=== PATIENT | male | born 1985 | race Caucasian/White ===

== ENCOUNTER → 2017-05-02 | Outpatient (CLI) | payer BC ==
[~2017-05-02] MED LIST: FLAGYL500 MG PO; LEVAQUIN 750MG750 M1 PO; NORCO 325 MG-51 TAB PO; PROTONIX 40MG T40 MG PO; ZOFRAN ODT4 MG PO
== END ==
LOC: COL.RAD 14:57
DX: M54.5 Low back pain (principal); K63.89 Other specified diseases of intestine; R31.9 Hematuria, unspecified; N50.812 Left testicular pain; N50.811 Right testicular pain

== ENCOUNTER 2017-12-24 22:06 | Emergency (ER) | payer BC ==
[2017-12-24 22:10] VITALS: TEMP 97.9
[2017-12-24] MEDS ORDERED: ULTRAM 50MG TAB50 MG PO (22:44)
[2017-12-24] MEDS ORDERED: FLEXERIL 1010 MG/TAB PO (22:45)
[2017-12-24] MEDS ORDERED: PREDNISONE20 MG PO (22:45)
[2017-12-24 23:07] VITALS: BP 136/76; PULSE 76
== END 2017-12-24 23:08 | disposition home or self-care (01) ==
LOC: COL.ER 22:06
DX: M54.17 Radiculopathy, lumbosacral region (principal); X50.3XXA Overexertion from repetitive movements, initial encounter; Y92.69 Other specified industrial and construction area as the place of occurrence of the external cause; Y99.0 Civilian activity done for income or pay
CPT/HCPCS: J1100

== ENCOUNTER 2019-03-08 01:34 | Observation (INO) | payer OTHER ==
[~2019-03-08] VITALS: Ht 177.8 cm; Wt 111.2 kg
[~2019-03-08 01:34] MED LIST changes: +FLEXERIL 1010 MG/TAB PO; +PREDNISONE20 MG PO; +ULTRAM 50MG TAB50 MG PO
[2019-03-08 02:03] LABS: COLLECTION METHOD CLEAN CATCH
[2019-03-08 02:06] LABS: BASO % 0.2 % (0.0-2.0); EOS # 0.1 (0.0-0.7); EOS % 0.6 % (0-4.0); GRAN % 78.7 % (42.2-75.2); HEMATOCRIT 43.3 % (42.0-52.0); HEMOGLOBIN 14.6 g/dl (13.5-18.0); LYMPH # 1.5 (1.2-3.4); LYMPH % 11.9 % (20.0-51.0); MEAN CELL VOLUME 91 fl (80.0-100.0); MEAN CORPUSCULAR HEMOGLOBIN 31 pg (27.0-31.0); MEAN CORPUSCULAR HGB CONC 34 g/dl (33.0-37.0); MEAN PLATELET VOLUME 10.5 fl (7.4-10.4); MONO # 1.1 (0.1-0.6); MONO % 8.4 % (1.7-9.3); PLATELET COUNT 223 K/mm3 (130-400); RED BLOOD COUNT 4.76 M/mm3 (4.20-5.60); REDCELL DISTRIBUTION WIDTH-CV 14.3 % (11.5-14.5)
[2019-03-08 02:09] LABS: MUCOUS Present /lpf; PH 5 (5-8); SQUAMOUS EPITHELIAL 0-2 /hpf; URINE APPEARANCE Clear; URINE BACTERIA None Seen /hpf; URINE BILIRUBIN Negative (NEGATIVE); URINE BLOOD Negative (NEGATIVE); URINE COLOR Yellow; URINE GLUCOSE Negative (NEGATIVE); URINE KETONE 1+ (NEGATIVE); URINE LEUKOCYTE ESTERASE Negative (NEGATIVE); URINE NITRATE Negative (NEGATIVE); URINE PROTEIN(semi-quant) Negative (NEGATIVE); URINE RBC 0-2 /hpf; URINE UROBILINOGEN Negative (NEGATIVE)
[2019-03-08 02:19] LABS: ALBUMIN 4.4 gm/dL (3.5-5.0); BILIRUBIN,TOTAL 0.8 mg/dL (0.0-1.0); C-REACTIVE PROTEIN 0.7 mg/dL (0.0-0.9); CALCIUM 9.4 mg/dL (8.4-10.2); CREATININE, serum 0.88 (0.66-1.25); POTASSIUM 4.3 mmol/L (3.4-5.0); TOTAL PROTEIN 7.9 gm/dL (6.4-8.2)
--- NOTE | 2019-03-08 04:25 | NUR ---
Patient arrived to unit at this time. Call light within reach.
--- NOTE | 2019-03-08 04:50 | NUR ---
Patient resting in bed. Initial assessment complete. Med rec completed. Patienr has no home meds. States pain is 6/10. Requests pain medication as soon as possible. Call light within reach.
[2019-03-08 04:51] VITALS: BP 137/78; PULSE 70; TEMP 98.5
--- NOTE | 2019-03-08 05:53 | NUR ---
Patient resting in bed. Requests to receive pain medication as soon as available. Call light within reach.
[2019-03-08 06:59] VITALS: BP 134/73; PULSE 59; TEMP 98.5
--- NOTE | 2019-03-08 07:05 | NUR ---
Report given to MICHAEL Sanford.
--- NOTE | 2019-03-08 08:59 | NUR ---
Assessment completed, alert/oriented, vital signs stable, reportings signficant / constanct RLQ pain, treating with PRN Morphine, has been by and is planning for surgery around 1000 this morning, patient is NPO, IVF running and I have had him sign informed consent for Lap. appy possible open, he denies other needs at this time
--- NOTE | 2019-03-08 09:18 | NUR ---
Initial visit; Patient thanked [employer] for looking in on him and offering God's blessings. Patient has family who offer care and support. Patient says he is being well cared for at our hospital.
[2019-03-08 12:02] VITALS: TEMP 99.6
[2019-03-08 12:09] VITALS: BP 101/58; PULSE 75
--- NOTE | 2019-03-08 12:16 | NUR ---
patient returned to room 317 from PACU, he is alert/oriented, vital signs stable, denies pain, he is tolerating PO fluid intake, present in room, will continue to monitor, stated "he is ready to discharge" and I have explained that we like to keep an eye on him for a little while to make sure his anasthesia wears off and he is able to tolerate eating/drinkin, abmulate and void urine
[2019-03-08 12:30] VITALS: BP 112/61; PULSE 68
--- NOTE | 2019-03-08 13:24 | NUR ---
Patient is doing well post procedure, pain controlled, vital signs stable, discharge instructions reviewed with patient and his , insturcted to follow up with as we have scheudled, script for Hood given, IV removed, and patient leaving with his , I will personally escort him out the door
== END 2019-03-08 13:25 | disposition home or self-care (01) ==
LOC: COL.ER 01:34 → MEDICAL 03:22
PROVIDERS: Emergency Medicine; ADMIT Surgery
DX: K35.80 Unspecified acute appendicitis (principal); F17.220 Nicotine dependence, chewing tobacco, uncomplicated; G47.33 Obstructive sleep apnea (adult) (pediatric); G62.9 Polyneuropathy, unspecified
CPT/HCPCS: A4216; G0378; J0696; J1100; J1170; J2250; J2270; J2405; J2704; J2710; J3010; J7030; Q9967

== ENCOUNTER 2021-05-03 17:34 | Emergency (ER) | payer OTHER ==
[~2021-05-03] VITALS: Ht 177.8 cm; Wt 129.5 kg
[2021-05-03 17:46] VITALS: TEMP 98.7
[2021-05-03] MEDS ORDERED: SYMJEPI0.3 MG/0.3 IJ (18:05)
[2021-05-03 19:21] VITALS: BP 108/64; PULSE 86
== END 2021-05-03 19:21 | disposition home or self-care (01) ==
LOC: COL.ER 17:34
DX: T63.441A Toxic effect of venom of bees, accidental (unintentional), initial encounter (principal)
CPT/HCPCS: J0171; J1200; J2405; J2930; J7030

== ENCOUNTER 2024-04-09 15:04 | Emergency (ER) | payer OTHER ==
[~2024-04-09] VITALS: Ht 177.8 cm; Wt 122.7 kg
[~2024-04-09 15:04] MED LIST changes: +SYMJEPI0.3 MG/0.3 IJ
[2024-04-09 15:10] VITALS: TEMP 98.3
[2024-04-09 16:50] VITALS: O2SAT 96
[2024-04-09 16:52] LABS: COLLECTION METHOD CLEAN CATCH
[2024-04-09 16:57] LABS: URINE APPEARANCE CLEAR (CLEAR/HAZY); URINE BLOOD NEGATIVE (NEGATIVE); URINE COLOR YELLOW (YELLOW); URINE GLUCOSE NEGATIVE (NEGATIVE); URINE KETONE NEGATIVE (NEGATIVE); URINE NITRATE NEGATIVE (NEGATIVE); URINE PROTEIN(semi-quant) NEGATIVE (NEGATIVE); URINE UROBILINOGEN 0.2 E.U/dL (0.2-1.0)
[2024-04-09 16:59] LABS: BASO % 0.5 % (0.0-2.0); EOS # 0.1 K/mm3 (0.0-0.7); EOS % 1.4 % (0.0-4.0); GRAN # 4.6 K/mm3 (1.4-6.5); GRAN % 63.1 % (42.2-75.2); HEMATOCRIT 43.9 % (42.0-52.0); HEMOGLOBIN 14.6 g/dl (13.5-18.0); LYMPH # 1.9 K/mm3 (1.2-3.4); LYMPH % 25.8 % (20.0-51.0); MEAN CELL VOLUME 92 fl (80.0-100.0); MEAN CORPUSCULAR HEMOGLOBIN 31 pg (27-31); MEAN CORPUSCULAR HGB CONC 33 g/dl (33.0-37.0); MEAN PLATELET VOLUME 10.6 fl (7.4-10.4); MONO # 0.7 K/mm3 (0.1-0.6); MONO % 8.9 % (1.7-9.3); PLATELET COUNT 267 K/mm3 (130-400); RED BLOOD COUNT 4.75 M/mm3 (4.20-5.60); REDCELL DISTRIBUTION WIDTH-CV 14.1 % (11.5-14.5)
[2024-04-09 17:25] LABS: ALANINE AMINOTRANSFERASE 62 U/L (0-55); ALBUMIN 4.1 g/dL (3.5-5.0); ALKALINE PHOSPHATASE 49 U/L (40-150); ANION GAP 12 mmol/L (7-16); AST,SGOT 36 U/L (5-34); BILIRUBIN,TOTAL 0.6 mg/dL (0.2-1.2); BLOOD UREA NITROGEN 17 mg/dL (9-21); CALCIUM 9.1 mg/dL (8.4-10.2); CHLORIDE 107 mEq/L (98-107); CREATININE, serum 1.08 mg/dL (0.72-1.25); GLUCOSE 88 mg/dL (70-99); POTASSIUM 4.3 mEq/L (3.5-4.5); SODIUM 142 mEq/L (136-145); TOTAL PROTEIN 7.3 g/dl (6.2-8.1)
[2024-04-09 17:45] LABS: TROPONIN-I < 0.010 ng/mL (0.00-0.033); TSH w REFLEX 1.034 uIU/mL (0.350-4.940)
[2024-04-09 21:15] VITALS: BP 120/74; PULSE 81
== END 2024-04-09 18:25 | disposition home or self-care (01) ==
LOC: COL.ER 15:04
PROVIDERS: Emergency Medicine
DX: R07.89 Other chest pain (principal); R20.2 Paresthesia of skin